=== PATIENT | female | born 1930 ===

== ENCOUNTER 2018-02-25 16:51 | Inpatient (IN) | payer OTHER ==
[~2018-02-25] VITALS: Ht 160 cm; Wt 116.0 kg
[~2018-02-25 16:51] MED LIST: ASPIR 8181 MG; ATIVAN1 M1; ATIVAN2 M1; DIOVAN HCT 80-11 TAB; DIOVAN160 M1; GABAPENTIN300 MG; LEVSIN/SL0.125 MG SL; LEXAPRO5 MG; LIPOFLAVOVIT CA1 TAB; LOSARTAN POTAS100 MG; METOPROLOL SUCC25 MG; NEURONTIN300 MG; OSTERA TABLET1 EACH; PEPCID40 MG PO; PROTECT CARDIO1 EAC1; PROTONIX40 MG; SIMVASTATIN20 MG
[2018-02-25] MEDS ORDERED: RANITIDINE HCL25 GM (17:03)
--- NOTE | 2018-02-25 17:10 | NUR ---
PACIENTE ALERTA, ACOMPANADA DE LA HIJA. HIJA REFIERE PACIENTE ESTA CON DICICULTAD RESPIRATORIA Y SECRECIONES EN LA [place] HIJ[place] INDICA QUE PACIENTE NO PUEDE ESPECTORAR.HIJA REFIERE PACIENTE PADECE DE BRONQUITIS ASMATICA Y DEMENCIA. SE ACOMODA PACIENTE EN CAMA #[id number]. TALHA PAPPAS LE REALIZA EKG Y SE PRESENTA A DR. PALOMARES. SE CONECTA A PACIENTE EN MONITOR CARDIACO Y OXIMETRIA DE PULSO.
--- NOTE | 2018-02-25 17:48 | NUR ---
[place]. OFRECIDO POR MIS. DELACRUZ QUIEN ORIENTA AL FAMILIAR Y AL PACIENTE SOBRE EL [place]. EXTRAE MUESTRAS DE ROMAN BAJO MEDIDAS ASEPTICAS. ROTULA Y ENVIA AL LABORATORIO. CANALIZA Y ADMINISTRA MEDICAMENTOS TAYE ORDEN MEDICA. NOTIFICA XRAY PORTABLE, ABGS Y TERAPIAS
--- NOTE | 2018-02-26 00:55 | NUR ---
PTE ALERTA Y ACTIVA SIGUIENDO COMANDO EN COMPANIA DE FAMILIAR,EN CAMA CON BARANDAS ELEVADAS.CONECTADA A MONITOR CARDIACO Y OXIMETRIA,PTE CON VM 35%,NO PRESENTA DIFICULTAD RESPIRATORIA.AREA DE VENOPUNCION PATENTE Y HUMBLE DE EDEMA CON HL EN BRAZO RT.PTE SATURANDO 88% Y SE NOTIFICA A DR PALOMARES,PENDIENTE A EVALUACION DE DR MÁRQUEZ.
--- NOTE | 2018-02-26 07:25 | NUR ---
SE RECIBE PTE FEMENINA DE 87 YRS ALERTA CONCIENTE Y TRANQUILA EN COMPANIA DE FAMILIAR.PTE EN CAMA CON BARABDAS ELEVADA.IVF'PATENTE Y HUMBLE DE EDEMA.SE OBSERVA CONMONITOR CARDIACO Y CANULA NASAL A 2 LTR.SE MANTIENE HUMBLE DE DOLOR ALMOMENTO.SE OBSERVA POR CAMBIOS.
== END 2018-03-07 19:02 | disposition home or self-care (01) | DRG 194 ==
LOC: ER 16:51 → MEDI 02-26 11:30
PROVIDERS: ADMIT Specialist
PROC: 4A033R1 Measurement of Arterial Saturation, Peripheral, Percutaneous Approach (ICD-10-PCS; 2018-02-26)
PROC: 3E0F7GC Introduction of Other Therapeutic Substance into Respiratory Tract, Via Natural or Artificial Opening (ICD-10-PCS; 2018-02-26)
PROC: BH4CZZZ Ultrasonography of Head and Neck (ICD-10-PCS; 2018-02-26)
PROC: 4A12X4Z Monitoring of Cardiac Electrical Activity, External Approach (ICD-10-PCS; 2018-02-26)
PROC: 0T9B70Z Drainage of Bladder with Drainage Device, Via Natural or Artificial Opening (ICD-10-PCS; 2018-02-26)
PROC: BW24ZZZ Computerized Tomography (CT Scan) of Chest and Abdomen (ICD-10-PCS; principal; 2018-02-28)
DX: J10.08 Influenza due to other identified influenza virus with other specified pneumonia (principal); J91.8 Pleural effusion in other conditions classified elsewhere; N17.9 Acute kidney failure, unspecified; J98.11 Atelectasis; J16.8 Pneumonia due to other specified infectious organisms; R09.02 Hypoxemia; R03.0 Elevated blood-pressure reading, without diagnosis of hypertension; F41.8 Other specified anxiety disorders; R33.8 Other retention of urine; R53.81 Other malaise; G93.89 Other specified disorders of brain; I25.10 Atherosclerotic heart disease of native coronary artery without angina pectoris